=== PATIENT | female | born 1995 | race Caucasian/White ===

== ENCOUNTER 2020-11-23 17:52 | Emergency (ER) | payer MEDICAID ==
[~2020-11-23] VITALS: Ht 160 cm; Wt 68.0 kg
[2020-11-23 18:00] VITALS: BP_SYST 132
[2020-11-23 18:21] VITALS: BP_SYST 132
== END 2020-11-23 18:21 ==
LOC: SED 17:52
DX: R10.30 Lower abdominal pain, unspecified (principal)
CPT/HCPCS: 99283